=== PATIENT | male | born 1990 | race African-American/Black ===

== ENCOUNTER 2023-05-29 10:34 | Emergency (ER) | payer OTHER ==
[2023-05-29 10:39] VITALS: BMI 22.8
[2023-05-29 11:15] LABS: BASO % 1.4 % (0-2.0); EOS % 2.3 % (0-4.5); HEMATOCRIT 44.2 % (35.4-49); HEMOGLOBIN 14.4 GM/dL (11.7-16.9); LYMPH % 25.4 % (8-40); MCH 28.9 pg (25.7-33.7); MCHC 32.5 g/dl (32.0-35.9); MEAN CELL VOLUME 88.9 fl (80-96); MEAN PLT VOLUME 9.9 fl (7.5-11.1); MONO % 7.4 % (3.8-10.2); NEUT % 63.5 % (42.8-82.8); PLATELET COUNT 160 10^3/uL (134-434); RBC 4.97 M/mm3 (4.00-5.60); RDW 13.1 % (11.9-15.9); WHITE BLOOD COUNT 4.3 K/mm3 (4.0-10.0)
[2023-05-29 11:34] LABS: POTASSIUM 3.6 mmol/L (3.5-5.1)
[2023-05-29 11:39] LABS: ALBUMIN 3.9 g/dl (3.4-5.0); BLOOD UREA NITROGEN 17.6 mg/dL (7-18); CALCIUM 9.5 mg/dL (8.5-10.1)
[2023-05-29 11:42] LABS: CREATININE 2.3 mg/dL (0.55-1.3)
[2023-05-29 11:46] LABS: EPI CELLS 1 /uL (0-25.1); HYALINE CASTS 0 /uL (0-3.1); URINE APPEARANCE CLEAR; URINE BACTERIA 0 /uL (0-1359); URINE BILIRUBIN NEGATIVE (NEGATIVE); URINE COLOR YELLOW; URINE GLUCOSE (UA) NEGATIVE (NEGATIVE); URINE KETONE NEGATIVE (NEGATIVE); URINE LEUK ESTERASE NEGATIVE (NEGATIVE); URINE NITRITE NEGATIVE (NEGATIVE); URINE PROTEIN 2+ (NEGATIVE); URINE RBC 6 /uL (0-23.9); URINE UROBILINOGEN 0.2 mg/dL (0.2-1.0); URINE WBC 4 /uL (0-25.8)
[2023-05-29 11:46] LABS: BILIRUBIN,TOTAL 0.6 mg/dL (0.2-1)
[2023-05-29] MEDS ORDERED: ACETAMINOPHEN INJECTION 100 ML IVPB ONE (11:57)
[2023-05-29] MEDS ORDERED: FAMOTIDINE 20 MG/50 ML IVPB 20 MG/50 ML MG IVPB ONE (11:57)
[2023-05-29] MEDS: ACETAMINOPHEN 1000 MG/100 ML BAG IVPB ONE (12:55)
[2023-05-29] MEDS: FAMOTIDINE 20 MG/50 ML IVPB 20 MG/50 ML MG IVPB ONE (12:55)
[2023-05-29] MEDS: SODIUM CHLORIDE 1,000 ML IV STA (12:55)
[2023-05-29 14:04] VITALS: BP 122/72; PULSE 78; RESP 19; TEMP 97.9
== END 2023-05-29 14:04 | disposition home or self-care (01) ==
LOC: JER 10:34
PROC: 3E033GC Introduction of Other Therapeutic Substance into Peripheral Vein, Percutaneous Approach (ICD-10-PCS; principal; 2023-05-29)
PROC: 3E033NZ Introduction of Analgesics, Hypnotics, Sedatives into Peripheral Vein, Percutaneous Approach (ICD-10-PCS; 2023-05-29)
PROC: 3E0337Z Introduction of Electrolytic and Water Balance Substance into Peripheral Vein, Percutaneous Approach (ICD-10-PCS; 2023-05-29)
DX: K29.00 Acute gastritis without bleeding (principal); R10.13 Epigastric pain
CPT/HCPCS: 36415; 76700-TC; 80053; 81003; 83690; 85025; 99284-25; J0131

== ENCOUNTER 2023-06-05 18:09 | Emergency (ER) | payer OTHER ==
[2023-06-05 18:44] VITALS: BP 128/82; PULSE 93; RESP 18; TEMP 98.4; BMI 23.6
== END 2023-06-05 19:26 | disposition home or self-care (01) ==
LOC: JERFT 18:09
DX: M67.432 Ganglion, left wrist (principal); R22.32 Localized swelling, mass and lump, left upper limb
CPT/HCPCS: 73110-TC-LT-FY; 99283-25

== ENCOUNTER 2023-06-19 14:29 | Emergency (ER) | payer OTHER ==
[2023-06-19 14:37] VITALS: BP 144/83; PULSE 63; RESP 20; TEMP 98.7; BMI 22.8
[2023-06-19] MEDS ORDERED: MAG HYDROX/AL HYDROX/SIMETH 30 ML UNIT-DOSE CUP ONE (15:17)
[2023-06-19] MEDS ORDERED: ONDANSETRON 4 MG/2 ML VIAL ONE (15:17)
[2023-06-19] MEDS ORDERED: PANTOPRAZOLE SODIUM 40 MG VIAL ONE (15:17)
[2023-06-19] MEDS ORDERED: ACETAMINOPHEN INJECTION 100 ML IVPB ONE (15:17)
[2023-06-19] MEDS: MAG HYDROX/AL HYDROX/SIMETH 30 ML UNIT-DOSE CUP PO ONE (15:38)
[2023-06-19] MEDS: SODIUM CHLORIDE 1,000 ML IV STA (15:38)
[2023-06-19] MEDS: ACETAMINOPHEN 1000 MG/100 ML BAG IVPB ONE (15:38)
[2023-06-19] MEDS: ONDANSETRON 4 MG/2 ML VIAL IVPUSH ONE (15:39)
[2023-06-19] MEDS: PANTOPRAZOLE SODIUM 40 MG VIAL IVPUSH ONE (15:39)
[2023-06-19 15:42] LABS: BASO % 0.3 % (0-2.0); EOS % 0.9 % (0-4.5); HEMOGLOBIN 14.1 GM/dL (11.7-16.9); LYMPH % 10.4 % (8-40); MCH 29.3 pg (25.7-33.7); MCHC 32.7 g/dl (32.0-35.9); MEAN CELL VOLUME 89.8 fl (80-96); MEAN PLT VOLUME 9.7 fl (7.5-11.1); MONO % 8.9 % (3.8-10.2); NEUT % 79.5 % (42.8-82.8); PLATELET COUNT 176 10^3/uL (134-434); RBC 4.79 M/mm3 (4.00-5.60); RDW 13.9 % (11.9-15.9); WHITE BLOOD COUNT 9.1 K/mm3 (4.0-10.0)
[2023-06-19 16:04] LABS: ALBUMIN 3.9 g/dl (3.4-5.0); CALCIUM 9.4 mg/dL (8.5-10.1)
[2023-06-19 16:05] LABS: BLOOD UREA NITROGEN 21.5 mg/dL (7-18)
[2023-06-19 16:07] LABS: CREATININE 2.7 mg/dL (0.55-1.3)
[2023-06-19 16:09] LABS: BILIRUBIN,TOTAL 0.4 mg/dL (0.2-1); TOT PROT 7.2 g/dl (6.4-8.2)
[2023-06-19] MEDS ORDERED: FAMOTIDINE 20 MG/50 ML IVPB 20 MG/50 ML MG IVPB ONE (16:29)
[2023-06-19] MEDS: FAMOTIDINE 20 MG/50 ML IVPB 20 MG/50 ML MG IVPB ONE (16:37)
[2023-06-19 17:38] LABS: EPI CELLS 6 /uL (0-25.1); HYALINE CASTS 0 /uL (0-3.1); URINE APPEARANCE CLEAR; URINE BACTERIA 2 /uL (0-1359); URINE BILIRUBIN NEGATIVE (NEGATIVE); URINE COLOR YELLOW; URINE GLUCOSE (UA) NEGATIVE (NEGATIVE); URINE KETONE NEGATIVE (NEGATIVE); URINE LEUK ESTERASE NEGATIVE (NEGATIVE); URINE NITRITE NEGATIVE (NEGATIVE); URINE PROTEIN 2+ (NEGATIVE); URINE RBC 114 /uL (0-23.9); URINE UROBILINOGEN 0.2 mg/dL (0.2-1.0); URINE WBC 6 /uL (0-25.8)
== END 2023-06-19 18:52 | disposition home or self-care (01) ==
LOC: JER 14:29
PROC: 3E033GC Introduction of Other Therapeutic Substance into Peripheral Vein, Percutaneous Approach (ICD-10-PCS; principal; 2023-06-19)
PROC: 3E033GC Introduction of Other Therapeutic Substance into Peripheral Vein, Percutaneous Approach (ICD-10-PCS; 2023-06-19)
PROC: 3E033GC Introduction of Other Therapeutic Substance into Peripheral Vein, Percutaneous Approach (ICD-10-PCS; 2023-06-19)
PROC: 3E033GC Introduction of Other Therapeutic Substance into Peripheral Vein, Percutaneous Approach (ICD-10-PCS; 2023-06-19)
DX: R10.30 Lower abdominal pain, unspecified (principal); R11.2 Nausea with vomiting, unspecified; A08.4 Viral intestinal infection, unspecified; Z20.822 Contact with and (suspected) exposure to COVID-19
CPT/HCPCS: 0241U-QW; 36415; 80053; 81003; 83690; 85025; 87086; 99284-25; J0131

== ENCOUNTER 2023-07-19 20:04 | Emergency (ER) | payer OTHER ==
[2023-07-19 20:10] VITALS: RESP 18; BMI 22.1
[2023-07-19] MEDS ORDERED: FAMOTIDINE 10 MG TABLET ONE (21:36)
[2023-07-19] MEDS ORDERED: MAG HYDROX/AL HYDROX/SIMETH 30 ML UNIT-DOSE CUP ONE (21:36)
[2023-07-19] MEDS: MAG HYDROX/AL HYDROX/SIMETH 30 ML UNIT-DOSE CUP PO ONE (21:53)
[2023-07-19] MEDS: ACETAMINOPHEN 325 MG TABLET (FP) PO ONE (21:53)
[2023-07-19] MEDS: FAMOTIDINE 10 MG TABLET PO ONE (21:53)
[2023-07-19 22:12] LABS: BASO % 0.4 % (0-2.0); EOS % 2.7 % (0-4.5); HEMATOCRIT 45.4 % (35.4-49); HEMOGLOBIN 15.2 GM/dL (11.7-16.9); MCH 29.6 pg (25.7-33.7); MCHC 33.4 g/dl (32.0-35.9); MEAN CELL VOLUME 88.6 fl (80-96); MEAN PLT VOLUME 9.6 fl (7.5-11.1); MONO % 9.8 % (3.8-10.2); NEUT % 48.1 % (42.8-82.8); PLATELET COUNT 227 10^3/uL (134-434); RBC 5.12 M/mm3 (4.00-5.60); RDW 14.5 % (11.9-15.9); WHITE BLOOD COUNT 4.8 K/mm3 (4.0-10.0)
[2023-07-19 22:38] LABS: POTASSIUM 3.6 mmol/L (3.5-5.1)
[2023-07-19 22:43] LABS: CALCIUM 9.6 mg/dL (8.5-10.1)
[2023-07-19 22:44] LABS: ALBUMIN 4.4 g/dl (3.4-5.0); BLOOD UREA NITROGEN 16.5 mg/dL (7-18)
[2023-07-19 22:47] LABS: CREATININE 2.4 mg/dL (0.55-1.3)
[2023-07-19 22:48] LABS: BILIRUBIN,TOTAL 0.7 mg/dL (0.2-1); TOT PROT 7.7 g/dl (6.4-8.2)
[2023-07-19 23:34] VITALS: BP 121/78; PULSE 72; TEMP 98
== END 2023-07-19 23:37 | disposition home or self-care (01) ==
LOC: JER 20:04
DX: R07.2 Precordial pain (principal)
CPT/HCPCS: 36415; 80053; 83690; 84484; 85025; 93005; 93010; 99284-25

== ENCOUNTER 2023-08-28 17:20 | Emergency (ER) | payer OTHER ==
[2023-08-28 17:31] VITALS: BP 122/76; PULSE 75; RESP 18; TEMP 98.1; BMI 22.1
[2023-08-28 18:49] LABS: BASO % 1.1 % (0-2.0); EOS % 2.7 % (0-4.5); HEMATOCRIT 39.9 % (35.4-49); HEMOGLOBIN 13.5 GM/dL (11.7-16.9); LYMPH % 31.1 % (8-40); MCH 30.6 pg (25.7-33.7); MCHC 33.9 g/dl (32.0-35.9); MEAN CELL VOLUME 90.1 fl (80-96); MEAN PLT VOLUME 9.5 fl (7.5-11.1); MONO % 9.7 % (3.8-10.2); NEUT % 55.4 % (42.8-82.8); PLATELET COUNT 198 10^3/uL (134-434); RBC 4.43 M/mm3 (4.00-5.60); RDW 15.6 % (11.9-15.9); WHITE BLOOD COUNT 3.5 K/mm3 (4.0-10.0)
[2023-08-28 18:52] LABS: EPI CELLS 3 /uL (0-25.1); HYALINE CASTS 0 /uL (0-3.1); URINE APPEARANCE CLEAR; URINE BACTERIA 3 /uL (0-1359); URINE BILIRUBIN NEGATIVE (NEGATIVE); URINE COLOR YELLOW; URINE GLUCOSE (UA) NEGATIVE (NEGATIVE); URINE KETONE TRACE (NEGATIVE); URINE LEUK ESTERASE NEGATIVE (NEGATIVE); URINE NITRITE NEGATIVE (NEGATIVE); URINE PROTEIN 2+ (NEGATIVE); URINE RBC 8 /uL (0-23.9); URINE UROBILINOGEN 0.2 mg/dL (0.2-1.0); URINE WBC 6 /uL (0-25.8)
[2023-08-28 18:55] LABS: CALCIUM 9.4 mg/dL (8.5-10.1)
[2023-08-28 18:56] LABS: ALBUMIN 4.1 g/dl (3.4-5.0); BLOOD UREA NITROGEN 15.2 mg/dL (7-18); MAGNESIUM 1.6 mg/dL (1.8-2.4)
[2023-08-28 18:58] LABS: CHOLESTEROL 210 mg/dL (50-200)
[2023-08-28 18:59] LABS: LDL CHOLESTEROL (ONLY SJRH) 128 mg/dL (5-100)
[2023-08-28 18:59] LABS: CREATININE 2.4 mg/dL (0.55-1.3)
[2023-08-28 19:01] LABS: HDL CHOLESTEROL 73 mg/dL (40-60)
[2023-08-28 19:01] LABS: BILIRUBIN,TOTAL 0.6 mg/dL (0.2-1)
== END 2023-08-28 20:13 | disposition home or self-care (01) ==
LOC: JERFT 17:20 → JER 17:20 → JERFT 20:13
DX: N18.30 Chronic kidney disease, stage 3 unspecified (principal); R10.13 Epigastric pain; H93.13 Tinnitus, bilateral
CPT/HCPCS: 36415; 71046-TC-FY; 80053; 80061; 81003; 83735; 84484; 85025; 93005; 93010; 99285-25

== ENCOUNTER 2023-09-11 14:38 | Emergency (ER) | payer OTHER ==
[2023-09-11 14:51] VITALS: BP 117/70; PULSE 68; RESP 18; TEMP 97.9; BMI 22.1
[2023-09-11 16:11] LABS: BASO % 2.2 % (0-2.0); EOS % 4.9 % (0-4.5); HEMATOCRIT 39.3 % (35.4-49); HEMOGLOBIN 13.2 GM/dL (11.7-16.9); LYMPH % 28.7 % (8-40); MCH 30.9 pg (25.7-33.7); MCHC 33.5 g/dl (32.0-35.9); MEAN CELL VOLUME 92.5 fl (80-96); MEAN PLT VOLUME 9.8 fl (7.5-11.1); MONO % 10.6 % (3.8-10.2); NEUT % 53.6 % (42.8-82.8); PLATELET COUNT 166 10^3/uL (134-434); RBC 4.25 M/mm3 (4.00-5.60); RDW 15.6 % (11.9-15.9)
[2023-09-11] MEDS: SODIUM CHLORIDE 0.9% 500 ML INFUS.BAG IV ONE (16:25)
[2023-09-11 16:39] LABS: POTASSIUM 4.4 mmol/L (3.5-5.1)
[2023-09-11 16:42] LABS: ALBUMIN 4.1 g/dl (3.4-5.0); BLOOD UREA NITROGEN 19.8 mg/dL (7-18); CALCIUM 8.7 mg/dL (8.5-10.1)
[2023-09-11 16:45] LABS: CREATININE 2.3 mg/dL (0.55-1.3); PHOSPHOROUS 2.5 mg/dL (2.5-4.9)
[2023-09-11 16:47] LABS: BILIRUBIN,TOTAL 0.3 mg/dL (0.2-1); TOT PROT 7.1 g/dl (6.4-8.2)
== END 2023-09-11 18:36 | disposition home or self-care (01) ==
LOC: JER 14:38
DX: R53.83 Other fatigue (principal); R53.1 Weakness
CPT/HCPCS: 36415; 80053; 83735; 84100; 84439; 84443; 85025; 93005; 93010; 99284-25

== ENCOUNTER 2023-10-02 10:31 | Emergency (ER) | payer OTHER ==
[2023-10-02 10:41] VITALS: BP 127/90; PULSE 71; RESP 20; TEMP 97.6; BMI 22.1
[2023-10-02 12:38] LABS: THROAT:GRP A STREP NOT DETECTED (NOTDETECTED)
== END 2023-10-02 12:48 | disposition home or self-care (01) ==
LOC: JERFT 10:31
DX: U07.1 COVID-19 (principal); R68.2 Dry mouth, unspecified
CPT/HCPCS: 0241U-QW; 87651; 99283-25

== ENCOUNTER 2023-10-25 14:18 | Emergency (ER) | payer OTHER ==
[2023-10-25 14:32] VITALS: BP 138/83; PULSE 72; RESP 18; TEMP 97.8; BMI 21.4
== END 2023-10-25 15:09 | disposition home or self-care (01) ==
LOC: JER 14:18 → JERFT 14:18
DX: K12.0 Recurrent oral aphthae (principal)
CPT/HCPCS: 99283-25

== ENCOUNTER 2023-12-22 12:41 | Emergency (ER) | payer OTHER ==
[2023-12-22 12:47] VITALS: BP 139/61; PULSE 90; RESP 18; BMI 22.1
[2023-12-22] MEDS ORDERED: ONDANSETRON *ODT* 4 MG TABLET ONE ×2 (14:43→14:44)
[2023-12-22] MEDS: ONDANSETRON *ODT* 4 MG TABLET SL ONE (14:48)
[2023-12-22 15:28] LABS: EPI CELLS 6 /uL (0-25.1); HYALINE CASTS 2 /uL (0-3.1); PH,URINE 5.5 (5.0-8.0); URINE APPEARANCE CLEAR; URINE BACTERIA 2 /uL (0-1359); URINE BILIRUBIN NEGATIVE (NEGATIVE); URINE COLOR YELLOW; URINE GLUCOSE (UA) NEGATIVE (NEGATIVE); URINE KETONE NEGATIVE (NEGATIVE); URINE LEUK ESTERASE NEGATIVE (NEGATIVE); URINE NITRITE NEGATIVE (NEGATIVE); URINE PROTEIN 2+ (NEGATIVE); URINE RBC 9 /uL (0-23.9); URINE UROBILINOGEN 0.2 mg/dL (0.2-1.0); URINE WBC 3 /uL (0-25.8)
== END 2023-12-22 16:13 | disposition home or self-care (01) ==
LOC: JER 12:41
DX: R80.9 Proteinuria, unspecified (principal); R11.2 Nausea with vomiting, unspecified; R51.9 Headache, unspecified; Z87.448 Personal history of other diseases of urinary system
CPT/HCPCS: 81003; 93005; 93010; 99284-25